=== PATIENT | male | born 1985 | race Caucasian/White ===

== ENCOUNTER 2018-01-14 18:12 | Emergency (ER) | payer MEDICAID ==
[~2018-01-14] VITALS: Ht 175.3 cm; Wt 75.0 kg
[~2018-01-14 18:12] MED LIST: NAPR-56 PO
[2018-01-14 18:33] VITALS: BP 112/62
[2018-01-14] MEDS ORDERED: sulfamethoxazole/trimethoprim DS (800/160mg) tablet PO ONE (19:35)
[2018-01-14] MEDS ORDERED: HYDROcodone/acetaminophen 5mg/325mg tablet PO ONE (19:35)
[2018-01-14] MEDS ORDERED: cephalexin 250mg capsule PO ONE (19:35)
[2018-01-14] MEDS ORDERED: SULF1TAB49 PO (19:36)
[2018-01-14] MEDS ORDERED: CEPH-572 PO (19:36)
== END 2018-01-14 19:46 | disposition home or self-care (01) ==
LOC: ER 18:13
DX: L03.115 Cellulitis of right lower limb (principal); F15.10 Other stimulant abuse, uncomplicated; Z79.899 Other long term (current) drug therapy
CPT/HCPCS: 73610; 99284